=== PATIENT | female | born 1990 | race Two or more races ===

== ENCOUNTER 2023-04-26 23:29 | Emergency (ER) | payer BC, OTHER ==
[~2023-04-26] VITALS: Ht 165.1 cm; Wt 97.7 kg
[2023-04-27 00:21] LABS: Hematocrit 38.9 % (36.0-46.0); Hemoglobin 13.2 g/dL (12.2-16.2); Mean Corpuscular Hgb Conc. 33.9 g/dL (32.0-36.0); Mean Corpuscular Volume 91.3 fL (80.0-100.0); Red Blood Cells 4.26 10^6/uL (4.0-5.20); White Blood Cell 22.1 10^3/uL (4.4-10.8)
[2023-04-27 00:29] LABS: Basophils % (manual) 0 (0.0-2.0); Blast Cells 0; Eosinophils % (manual) 0 (0-7); Metamyelocytes % 0; Myelocytes % 0; Promyelocytes % 0; Reactive Lymphocytes 0
[2023-04-27 00:37] LABS: Albumin 3.7 g/dL (3.4-5.0); Calcium 8.6 mg/dL (8.5-10.1); Potassium 3.3 mmol/L (3.5-5.1)
[2023-04-27 00:40] LABS: Bilirubin, Total 4.1 mg/dL (0.2-1.0); Total Protein 6.9 g/dL (6.4-8.2)
[2023-04-27 01:32] LABS: Band Neutrophils % (manual) 10; Lymphocytes % (manual) 2 (10.0-50.0); Monocytes % (manual) 2 (0-12)
[2023-04-27] MEDS ORDERED: PIPERACILLIN-TAZOB 3.375GM 100 ML IV ONE (01:45)
[2023-04-27] MEDS ORDERED: ONDANSETRON HCL 4 MG/2 ML VIAL IV ONE ×2 (01:45→11:15)
[2023-04-27] MEDS ORDERED: HYDROmorphone HCL 2 MG/ML VL/or syr IV ONE (01:45)
[2023-04-27] MEDS ORDERED: SODIUM CHLORIDE 0.9% 1,000 ML IV ONE (01:45)
[2023-04-27 02:36] VITALS: PULSE 106; RESP 27; O2SAT 96
[2023-04-27 08:53] VITALS: PULSE 92; RESP 18; O2SAT 98
[2023-04-27 11:01] LABS: Urine Bacteria NONE SEEN /hpf (None Seen); Urine Blood 2+ /uL (Negative); Urine WBC 9 /hpf (0 - 5)
[2023-04-27] MEDS ORDERED: MORPHINE SULFATE 4 MG/ML SYR/VIAL IV ONE (11:15)
[2023-04-27 13:26] VITALS: BP 123/66; PULSE 73; RESP 17; TEMP 98.4; O2SAT 96
== END 2023-04-27 14:33 | disposition short-term general hospital (02) ==
LOC: EDBD 23:29 → ER 23:29
DX: K85.90 Acute pancreatitis without necrosis or infection, unspecified (principal); K80.50 Calculus of bile duct without cholangitis or cholecystitis without obstruction; R10.2 Pelvic and perineal pain
CPT/HCPCS: 36415; 71250; 74176; 74181; 80053; 81001; 83605; 83690; 84702; 85007; 85027; 96365; 96366; 96375; 96376; 99285; J1170; J2270; J2405; J2543; J7030; 93005